=== PATIENT | female | born 1950 | race Caucasian/White ===

== ENCOUNTER → 2024-07-03 11:38 | Outpatient (CLI) | payer OTHER, SELFPAY ==
--- NOTE | 2024-07-03 | DI.CT.S_ITS ---
PROCEDURE: CT LUMBAR SPINE WO CON INDICATIONS: Spinal stenosis, lumbar region with neurogenic claudication TECHNIQUE: Noncontrast 3 mm thick sections acquired from the T12 level to the sacrum. Sagittal and coronal reformats were constructed. For radiation dose reduction, the following was used: automated exposure control. COMPARISON: [facility], MR, MR LUMBAR SPINE WITHOUT CONTRAST, 07/05/2023, 12:49. [facility] [place], CR, XR LUMBAR SPINE 2 OR 3 VIEWS, 06/21/2024, 12:25. FINDINGS: Image quality: Excellent. Bones: There is 2 mm retrolisthesis of L2 on L3 and 3 mm anterolisthesis of L4 on L5. No acute vertebral body compression fractures. No suspicious lytic or blastic bony lesions. No pars defects. T12-L1: No significant disc bulge, canal stenosis or neural foraminal narrowing. L1-L2: Degenerative endplate changes and vacuum disc phenomenon is seen. There is diffuse disc bulge and bilateral facet arthrosis causing mild central canal stenosis and moderate bilateral neural foraminal narrowing slightly worse on the left side. L2-L3: Loss of disc height and degenerative endplate changes are seen. Broad-based disc bulge and bilateral facet arthrosis with [id number] central canal stenosis, severe left-sided neural foraminal narrowing. L3-L4: Loss of disc height and degenerative endplate changes are seen. Broad-based disc bulge and bilateral facet arthrosis causing moderate to severe central canal stenosis and right worse than left moderate to severe bilateral neural foraminal narrowing. L4-L5: Degenerative endplate changes are seen. Broad-based disc bulge and bilateral facet arthrosis with [id number] central canal stenosis and moderate to severe bilateral neural foraminal narrowing. L5-S1: Loss of disc height and degenerative endplate changes are seen. Diffuse disc bulge and bilateral facet arthrosis causing mild central canal stenosis and gjpu-ro-ycuzxica bilateral neural foraminal narrowing worse on the right side. Soft tissues: No retroperitoneal masses or hematomas. Visualized aorta is normal in caliber. IMPRESSION: 1. Study is for surgical planning. 2. Degenerative disc disease throughout lumbar spine causing various degrees of central canal stenosis and bilateral neural foraminal narrowing as described above and is better evaluated on previous MRI study. 3. No acute compression fracture. Minimal spondylolisthesis as described above. No suspicious intraosseous lesion. No gross paraspinous soft tissue abnormalities. Dictated by: Brian Beltran M.D. on 07/03/2024 at 17:43 Approved by: Brian Beltran M.D. on 07/03/2024 at 17:50
== END ==
PROVIDERS: PCP Family Medicine; Referring Provider Orthopaedic Surgery Orthopaedic Surgery of the Spine; Visit Provider Orthopaedic Surgery Orthopaedic Surgery of the Spine
DX: M48.062 Spinal stenosis, lumbar region with neurogenic claudication (principal); M48.07 Spinal stenosis, lumbosacral region; M51.36 Other intervertebral disc degeneration, lumbar region; M51.37 Other intervertebral disc degeneration, lumbosacral region; M47.816 Spondylosis without myelopathy or radiculopathy, lumbar region; M47.817 Spondylosis without myelopathy or radiculopathy, lumbosacral region
CPT/HCPCS: 72131

== ENCOUNTER 2024-07-11 06:04 | Inpatient (IN) | payer OTHER, SELFPAY ==
[2024-07-05 09:48] VITALS: BMI 35.7
[2024-07-10 13:30] VITALS: TEMP 36.2
[2024-07-11] VITALS (14 sets, daily range): BP systolic 109–139; BP diastolic 50–85; PULSE 72–91; RESP 10–20; TEMP 36.2–37; O2SAT 91–99; BMI 34.2; BMI 36.8
[2024-07-11] MEDS: LACTATED RINGERS 1,000 ML 42 ML IV ×2 (06:51→09:15)
[2024-07-11] MEDS: ACETAMINOPHEN 325 MG TABLET 975 MG PO (06:55)
--- NOTE | 2024-07-11 07:39 | PM.PREOP ---
Pre-operative Note Interval Note History & Physical reviewed/Exam performed by Physician: Yes Changes to H&P: No
[2024-07-11] MEDS: CEFAZOLIN 2 GM/100 ML PREMIX 100 ML IV ×2 (08:03→16:09)
--- NOTE | 2024-07-11 08:13 | SUR.OPER ---
Prone on spine table, head in foam head support, padded chest and pelvic supports, gel pad at knees, lower legs supported by pillows; nipples, genitalia and toes free of pressure, arms secured on foam padded arm boards at <90 degrees abduction. Tape over blanket at thigh secured to table.
[2024-07-11] MEDS: BUPIVACAINE 0.25% (PF) 60 ML, EPINEPHrine 0.15 MG INJ (08:24)
[2024-07-11] MEDS: BUPIVACAINE LIPOSOME 266 MG/20 ML VIAL INJ (08:24)
--- NOTE | 2024-07-11 10:30 | P.OP_ITS ---
Operative Date/Time/Diagnoses Date of procedure: 07/11/24 Time of procedure: 07:40 Pre-op diagnosis: 1. L4-5 spondylolisthesis 2. L3-4, L4-5 spinal stenosis with radiculopathy Post-op diagnosis: same Procedure & Clinicians Procedure: 1. L4-5 Postero-lateral and posterior interbody fusion 2. L4-5 interbody cage placement. 3. L4-5 decompressive laminectomy with bilateral facetecomies 4. L4-5 Posterior non-segmental instrumentation 5. L3-4 left hemilaminectomy 6. [place] of bone marrow from iliac crest 7 Utilization of microsurgical technique and operating microscope 8. Utilization of robotic assisted navigation Same procedure as scheduled: Yes Indications: Patient has been having chronic back pain and worsening lumbar radiculopathy. Patient was found to have L4-5 spondylolisthesis at L4-5 with flexion-extension x-ray along with L3-4 L4-5 spinal stenosis correlating with her back pain and leg radiculopathy. Patient failed multiple conservative management with worsening pain weakness and numbness in her lower extremity. Patient has been having difficulty performing activity of daily living. After discussing risks benefits of treatment options, patient elected proceed with surgery. Surgeon: Shola Love Marine Engineering Teacher: Shadia Julian Click Yes if Unassisted: No Anesthesia Type: General Operative Notes Closure Type: primary Specimen(s): none sent Prosthetic devices, grafts, tissues, transplants, or devices: Globus CREO MIS screws, Rise cage Estimated Blood Loss (mL): 100 Blood products transfused: none Procedure in detail: Patient was seen in the preoperative area. Risks and benefits of the surgery was discussed with the patient. Informed consent was obtained from the patient and placed in the chart. Surgical site was marked. Patient was taken to the operative room. General anesthesia was administered. Prophylactic antibiotic was given to the patient less than 30 min before the incision was made. Patient was placed into a prone position on the Yogi table. Patient's back was then prepped and draped in the sterile fashion. Time-out was performed at this time. After patient was prepped and draped, patient's PSIS was palpated and marked bilaterally. Small 1 cm incision was made over the PSIS for placement of the reference probes. Two trocar was placed into the PSIS 1 on each side. The reference probe was attached to the trocar of the reference apparatus. At this time the C-arm imaging was used to confirm AP and lateral of L4-L5 vertebrae and merged the C-arm imaging using the Military Wraps robotic navigation system with the CT of the lumbar spine. After successful merging was completed and confirmed, skin marker was used to cori out the skin incision using the Military Wraps robotic arm. Bilateral incision was made at this time. Pre templated trajectory was used and guided using the Military Wraps robotic navigation system for bilateral L4, L5 pedicle screw placement. This was done by using the robotic arm to guide the high-speed bur to make a cortical entry point. Next a drill was placed also using the robotic arm and guided using the navigation system drilling partially through bilateral L4, L5 pedicles. Next L4, L5 pedicle screws it was pre templated and measured was placed onto the po wer street flusher driver and inserted into the pedicles bilaterally. After all 4 screws were placed C-arm imaging was taken of both AP and lateral to confirm the placement. Excellent placement of the screws were confirmed and a matched precisely with the pre planned screw placement using the navigation system. MARs retractor was inserted using Letsdeccoivation guidence. Globus MARS retractors was placed inside the incision and docked onto the L4 lamina. Using microsurgical technique and operating microscope, a L4 laminectomy and L4-5 facetectomy was performed using a Kerrison rongeur. Patient was found have severe lateral recess and neural foramen stenosis which was fully decompressed after the laminectomy facetectomy. More than 75% of the facets were removed during the process of decompression rendering L4-5 level grossly unstable and required a fusion procedure at the same time. The disc space at L4-5 was identified, and a total diskectomy was performed at L4-5 level. The endplates were decorticated using a rasp and shaver. The total diskectomy and decortication was performed at L4-5 level in order to to accomplish a L4-5 fusion. The local bone from the laminectomy and facetectomy was saved for local bone grafting. After the total diskectomy and decortication was completed, Viacel bone graft material was combined with local bone that was harvested earlier. At this time, a separate skin is incision was made over the iliac crest. A Jamshidi needle was inserted into the iliac crest through a separate skin incision. 5 cc of bone marrow aspiration was obtained through the separate skin incision using a Jamshidi needle from the iliac crest. The bone marrow aspiration was combined with local bone and the Viacel bone grafting material. The bone grafting material was placed into the L4-5 interbody space along with a expandable cage. The cage was expanded to its maximum height using the torque limiting screwdriver. The disc preparation as well as the cage insertion were also performed under navigation guidance. After the cage was placed, AP and lateral C-arm imaging was taken to confirm placement of the cage and excellent position was confirmed. The MARS retractor was heard redirected over the L3-4 interval. Using microsurgical technique and operating microscope a left-sided hemilaminectomy was performed using Kerrison rongeur and undercutting the L3-4 facet to further decompress the lateral recess. Globus MARS retractor was inserted and docked onto the L4-5 posterolateral gutter on the right side. Using the power drill, posterior-lateral decorticati on was performed at L4-5 level until bleeding cortical bone was identified. The remaining bone grafting material was placed into the L4-5 posterior lateral gutter he order to accomplish posterolateral fusion at the L4-5 level. At this time the tulips were attached to the L4, L5 pedicle screw shanks. After measuring the length of the rods, they were inserted into the tulips of the pedicle screws and locked in place using locking caps and torque limiting screwdriver bilaterally. Total 4 caps and 2 titanium rods was used in order to complete the posterior instrumentation construct. After all the hardware was placed, and confirmed with AP and lateral C-arm imaging, the wound was then irrigated with sterile normal saline and packed with Ray-Samra gauze for 3 min to accomplish hemostasis. After the gauze was removed the deep fascia was closed with #1 Vicryl suture. The subcutaneous layer was closed with 2-0 Vicryl. The skin was closed with skin radha. Patient tolerated the procedure well. There were no complications. The Operation could not have been safely performed without compromising the technical result or length of the procedure, without the assistance of a skilled surgical garment fitter. The surgical garment fitter was medically necessary for proper positioning, retraction and manipulation of instruments, proper exposure, surgical preparation, and manipulation of tissue. Neuro monitoring system was used to monitor patient's neurologic status throughout entire procedure. There was no disturbance of the neural monitoring signals throughout the case. Complications: none Post-operative Condition: stable Disposition: PACU Plan for aftercare: Admit to inpatient hospital
--- NOTE | 2024-07-11 10:30 | DI.RAD.S_ITS ---
PROCEDURE: XR LUMBAR SPINE 2-3V INDICATIONS: L4-5 TLIF TECHNIQUE: 2 intraoperative views of the lumbar spine were acquired. COMPARISON: [facility] DANICA Larson, XR LUMBAR SPINE 2 OR 3 VIEWS, 06/21/2024, 12:25. FINDINGS: Bones: Intraoperative views during L4-5 posterior spinal fixation and discectomy. Hardware appears intact. IMPRESSION: Intraoperative views during L4-5 posterior spinal fixation and discectomy. Hardware appears intact. Dictated by: Luis Knight M.D. on 07/11/2024 at 14:43 Approved by: Luis Knight M.D. on 07/11/2024 at 14:44
[2024-07-11] MEDS: hydrOXYzine 50 MG/ML INJ 25 MG IM (10:53)
[2024-07-11] MEDS: LACTATED RINGERS 1,000 ML 125 ML IV (11:44)
--- NOTE | 2024-07-11 12:27 | OT.IPNOTE ---
Checked on pt for OT eval and not ready as just came up from surgery. Able to get prior level of care and home information from her daughter, no charge. To work with her daughter tomorrow at 9AM.
[2024-07-11] MEDS: TRIAMTERENE/HCTZ 37.5/25 CAPSULE 1 CAP PO (12:40)
[2024-07-11] MEDS: ACETAMINOPHEN 325 MG TABLET 650 MG PO (13:04)
--- NOTE | 2024-07-11 14:40 | PT.IIE ---
Current Diagnoses Spondylolisthesis, lumbar region (07/11/24) Spinal stenosis, lumbar region with neurogenic claudication (07/11/24) Surgery Performed Operation Date: 07/11/24 07:45 Actual Procedures p L4-5 TLIF -Rodrigo - Shola Love MD Surgical History (Last Updated 07/05/24 @ 10:23 by Jamila Otto, RN) Hx of arthroscopy of left knee Hx of laminectomy Hx of LASIK Hx of left breast biopsy Medical History (Last Updated 07/05/24 @ 10:20 by Jamila Otto RN) Depression Diabetes HLD (hyperlipidemia) HTN (hypertension) Neuropathy No blood products Overactive bladder Psoriasis Spinal stenosis Physical Therapy Inpatient Evaluation/Re-Eval M1 PT/OT-IP Prior Functional Status Start: 07/11/24 15:46 Freq: NEEDED Status: Active Protocol: Document 07/11/24 14:40 AB (Rec: 07/11/24 16:01 [id number]) Medical Review Prior Functional Status Medical History Reviewed Yes Communication able to make needs known Mobility and Gait pt stated that she was modified independent with all mobilities but occasionally will need assistance with sit to stand. pt ambulates without AD indoors but tends to furniture cruise. uses a SPC for outdoor ambulation Social History Household Members none Living Arrangements Mobile home Number of Floors (Floors) One Floor Number of Stairs To Enter/Railing? pt has a ramp to enter Home Environment Standard Height Toilet,Tub/ Shower,Ramp Home Equipment Straight Cane,Raised Toilet Seat w/Armrests,Shower Seat with Backrest,Hand Held Shower Additional Social History Comment Pt's daughter to stay with here as long as needed daughter stated that they will get a FWW for pt and currently a grab bar is being installed next to the toilet M2 PT-IP Current Condition Start: 07/11/24 15:46 Freq: NEEDED Status: Active Protocol: Document 07/11/24 14:40 AB (Rec: 07/11/24 16:01 AB [id number]) Physical Therapy Current Condition Current Condition Evaluation Date 07/11/24 Treatment Diagnosis s/p L4-5 TLIF; difficulty in walking Onset Date 07/11/24 M3 PT-IP Subjective Start: 07/11/24 15:46 Freq: NEEDED Status: Active Protocol: Document 07/11/24 14:40 AB (Rec: 07/11/24 16:01 [id number]) Subjective Physical Therapy Visit Type Type Initial Evaluation Visit Start Time 14:40 Visit Stop Time 15:40 Number of COTTON BAG SEWER Visits 0 Physical Therapy Visit Comments Patient Comments agreeable to do PT Therapy Pain Assessment Pain When Pain Assessed At Rest Pain Present Pain Present Pain Reported Location back Intensity 3 Scale Used increases to 6/10 with mobility Description Sharp Pain Management Techniques Apply Cold,Distraction, Modification of Treatment,Re- positioning,Timing of Activity with Medications M4 PT-IP Mobility and Gait Start: 07/11/24 15:46 Freq: NEEDED Status: Active Protocol: Document 07/11/24 14:40 AB (Rec: 07/11/24 16:01 [id number]) PT-Bed Mobility Assessment Rolling Type of Rolling Log Rolling Level of Assist Moderate Assistance Supine to Sit Supine to Sit Moderate Assistance,Maximum Assistance PT-Transfer Assessment Sit to and From Stand Sit to and from Stand Minimal Assistance,1 Person Assistance,Use of Upper Extremities Equipment Transfer Assistive Device Gait Belt,Front Wheeled Walker Orthotic/Prosthetic Devices or Brace: No Transfers Transfer Destination Toilet Transfer Technique ambulated Transfer Ability Level of Assist Minimal Assistance,1 Person Assistance,Use of Upper Extremities Comments Mobility Comments pt supine in bed and daughter in room with pt. post-op folder provided and reviewed contents. educated pt regarding back precautions and log roll bed mobility. BP in supine: 127/72 O2 sat: 92-93 %. pt completed log roll supine to sit mod to max A and max cues. pt able to sit on EOB with initial min A but SBA after repositioning. c/o slight dizziness. BP: 127/78. pt requested to use the toilet. completed sit to stand min A and cues. ambulated towards the toilet using FWW min A and cues for steadiness and safety. pt can be impulsive. min A for standign balance while pt manages her brief. sit to stand from the toilet using grab bar min A. pt needed assist with hygiene care and brief management. pt ambulated towards the sink using FWW min A. able to maintain standing balance min A using FWW for support while completing handwashing. pt ambulated back to the EOB min A and cues. completed log roll sit to supine SBA and max cues. positioned pt in bed. call light and table placed within reach. pt's daughter will be in for OT at 9am. pt and daughter agreed to do caregiver training if needed afterwards. Gait Assessment Gait Gait Assistance Required: Minimum Assistance Distance (Feet) 12 Able to Maintain Weight Bearing Status Yes During Gait Assistive Devices Assistive Device Gait Belt,Front Wheeled Walker Orthotic/Prosthetic Devices or Brace: No Gait Deviations General Gait Pattern Ataxic,Decreased Stride Length ,Decreased Feet Clearance,Step -to Gait Factors Limiting Gait Function Factors Limiting Gait Function Decreased Activity Tolerance, Decreased Strength,Difficulty Following Directions,Limited Range of Motion,Pain,Poor Balance,Poor Safety Awareness PT-Balance Assessment Sitting Balance and Reactions Static Sitting Balance Ability Good Dynamic Sitting Balance Ability Good Standing Balance and Reactions Static Standing Balance Ability Fair Dynamic Standing Balance Ability Fair Device Used FWW M5 PT-IP Objective Assessments Start: 07/11/24 15:46 Freq: NEEDED Status: Active Protocol: Document 07/11/24 14:40 AB (Rec: 07/11/24 16:01 [id number]) Orientation Orientation/Cognition Level of Alertness Alert Orientation Name,Place,Situation Safety Awareness Decreased Safety Awareness Memory Description No Deficits Noted Gross Range of Motion Lower Extremity ROM Assessment Within Functional Limits Strength Comments Strength Comments RLE: 4/5 LLE 4-/5 Sensation Assessment Sensation Gross Sensation WNL Muscle Tone Muscle Tone WNL Yes M6 PT-IP Treatment Start: 07/11/24 15:46 Freq: NEEDED Status: Active Protocol: Document 07/11/24 14:40 AB (Rec: 07/11/24 16:01 [id number]) Physical Therapy Treatment Education Education Provided Safety M7 PT-IP Assessment and Plan Start: 07/11/24 15:46 Freq: NEEDED Status: Active Protocol: Document 07/11/24 14:40 AB (Rec: 07/11/24 16:01 [id number]) PT Summary Assessment and Plan Potential Rehabilitation Potential Good Status of Condition at Evaluation Stable Summary Impairments Pain,ROM,Strength,Balance, Coordination,Sensation,Tone, Cognition,Bed Mobility, Transfers,Gait,Activity Tolerance Assessment Summary pt is a 73 y/o F s/p L4-5 TLIF POD 0. pt with back precautions. pt requiring mod to max A for bed mobility and min A with transfers and ambulation using FWW. pt plans to go home with daughter to assist her. Caregiver training will be conducted when appropriate. will continue to assess. Goals Bed Mobility Goal Independent Transfer Goal Independent,Front Wheeled Walker Gait Goal Independent,Front Wheel Walker Gait Distance 200 Days to Meet Goals 5 Frequency of Treatment Frequency Of Treatment Twice a Day Treatment Plan Physical Therapy Treatment Plan Bed Mobility Training,Transfer Training,Gait Training, Therapeutic Exercise,Balance Retraining,Post Op Education, Discharge Planning,Hot or Cold Pack,Neuromuscular Re-ed, Coordination Retraining,Manual Therapy Precautions Lumbar Precautions Log Roll,No Twisting,Limit Bending,Lifting Restriction of 10 lbs,Gait Belt above Incisional Area Recommendations To Nursing Amount of Assist Needed 1 Person Assist Discharge Recommendations PT Discharge Recommendations Home with 24/ Assist Available,Home Health Transportation Needs at Discharge Private Vehicle
[2024-07-11] MEDS: OXYCODONE IR 10 MG TABLET PO (15:12)
[2024-07-11] MEDS: GABAPENTIN 300 MG CAPSULE PO ×2 (16:01→20:50)
[2024-07-11] MEDS: lisinopriL 20 MG TABLET 40 MG PO (20:50)
[2024-07-11] MEDS: CITALOPRAM 10 MG TABLET 20 MG PO (20:50)
[2024-07-11] MEDS: buPROPion XL 150 MG TAB PO (20:50)
[2024-07-11] MEDS: DOCUSATE 100 MG CAPSULE PO (20:51)
[2024-07-11] MEDS: SENNOSIDES 8.6 MG TABLET 17.2 MG PO (20:51)
[2024-07-11] MEDS: OXYCODONE IR 5 MG TABLET PO (20:51)
[2024-07-12] MEDS: OXYCODONE IR 5 MG TABLET PO ×3 (00:44→13:26)
[2024-07-12] MEDS: CEFAZOLIN 2 GM/100 ML PREMIX 100 ML IV (00:53)
[2024-07-12] MEDS: ACETAMINOPHEN 325 MG TABLET 650 MG PO (05:46)
[2024-07-12] MEDS: DOCUSATE 100 MG CAPSULE PO (08:43)
[2024-07-12] MEDS: OXYBUTYNIN 5 MG TABLET PO (08:44)
[2024-07-12] MEDS: GABAPENTIN 300 MG CAPSULE PO (08:44)
[2024-07-12] MEDS: METFORMIN HCL 500 MG TABLET PO (08:44)
[2024-07-12] MEDS: TRIAMTERENE/HCTZ 37.5/25 CAPSULE 1 CAP PO (08:44)
[2024-07-12] MEDS: ATORVASTATIN 20 MG TABLET 40 MG PO (08:44)
--- NOTE | 2024-07-12 09:39 | OT.IP.EVAL ---
Current Diagnoses Spondylolisthesis, lumbar region (07/11/24) Spinal stenosis, lumbar region with neurogenic claudication (07/11/24) Surgery Performed Operation Date: 07/11/24 07:45 Actual Procedures p L4-5 TLIF -Robot - Shola Love MD Past Medical History (Last Updated 07/05/24 @ 10:20 by Jamila Otto, RN) Depression Diabetes HLD (hyperlipidemia) HTN (hypertension) Neuropathy No blood products Overactive bladder Psoriasis Spinal stenosis Surgical History (Last Updated 07/05/24 @ 10:23 by Jamila Otto RN) Hx of arthroscopy of left knee Hx of laminectomy Hx of LASIK Hx of left breast biopsy Occupational Therapy Inpatient Evaluation/Re-Eval M1 PT/OT-IP Prior Functional Status Start: 07/11/24 15:46 Freq: NEEDED Status: Active Protocol: Document 07/11/24 14:40 AB (Rec: 07/11/24 16:01 AB [id number]) Medical Review Prior Functional Status Medical History Reviewed Yes Communication able to make needs known Mobility and Gait pt stated that she was modified independent with all mobilities but occasionally will need assistance with sit to stand. pt ambulates without AD indoors but tends to furniture cruise. uses a SPC for outdoor ambulation Social History Household Members none Living Arrangements Mobile home Number of Floors (Floors) One Floor Number of Stairs To Enter/Railing? pt has a ramp to enter Home Environment Standard Height Toilet,Tub/ Shower,Ramp Home Equipment Straight Cane,Raised Toilet Seat w/Armrests,Shower Seat with Backrest,Hand Held Shower Additional Social History Comment Pt's daughter to stay with here as long as needed daughter stated that they will get a FWW for pt and currently a grab bar is being installed next to the toilet M3 OT- IP Subjective and Pain Start: 07/11/24 12:28 Freq: Status: Active Protocol: Document 07/12/24 09:40 [facility] (Rec: 07/12/24 09:53 [facility] [id number]) OT- Subjective Occupational Therapy Visit Type Type Treatment Note Visit Start Time 09:00 Visit Stop Time 09:39 Occupational Therapy Visit Comments Patient Comments Pt agreed to get up to use the bathroom. Patient/Caregiver Goals TO go home. OT Pain Assessment Pain When Pain Assessed At Rest Pain Present Pain Present Pain Reported Location back Intensity 2 Scale Used Numeric (0 - 10) M4 OT- IP ADL's Start: 07/11/24 12:28 Freq: Status: Active Protocol: Document 07/12/24 09:40 [facility] (Rec: 07/12/24 09:53 [facility] [id number]) OT FIM-[place]ve-[place] General Evaluation Self-Feeding Ability Independent OT ADL-Grooming General Evaluation Grooming Ability Standby Assistance Areas Needing Assistance Retrieving/Set-up of Grooming Items Comments OT Grooming Comments Able to do while standing with the FWW. OT ADL-Oral Care General Eval Oral Care Ability Independent Comments Oral Care Comments VC to hinge at her hips or just spit into a cup to best follow her back precautions. OT ADL-Dressing General Eval Lower Body Dressing Ability Maximum Assistance Comments OT Dressing Comments Pt able to practice use of rattlesnake farmer and sick aid to assist with needs. Pt states to wear gown and slip on slippers. OT ADL-Toileting General Evaluation Toileting Ability Minimal Assistance Comments OT Toileting Comments Pt has a bidet at home and needing assist for completeness to wipe. Suggested pt get a toilet paper aid.Pt has to wear pads/ brief at home. OT ADL-Bathing Comments OT Bathing Comments Educated pt's daughter of care for bandage needs while showering . M5 OT- IP IADL's Start: 07/11/24 12:28 Freq: Status: Active Protocol: Document 07/12/24 09:40 [facility] (Rec: 07/12/24 09:53 [facility] [id number]) OT-Instrumental Activities of Daily Living Deficits IADL Deficits Identified Deficits Home Safety Awareness Awareness of Need for Assistance at Home Good Awareness Ability to Problem Solve Emergency Able to Problem Solve Situations Home Safety Comments Pt's daughter to stay with her as long as needed after surgery. Meal Preparation Meal Preparation Caregiver Provides Assist Public Relations Specialist Public Relations Specialist Caregiver Provides Assist M6 OT- IP Functional Cognition Start: 07/11/24 12:28 Freq: Status: Active Protocol: Document 07/12/24 09:40 [facility] (Rec: 07/12/24 09:53 [facility] [id number]) Cognitive Factors Limiting Selfcare Function Cognitive Ability Level of Alertness Alert Patient Orientation Name,Age,Birthday,Month,Date, Year,Day of Week,Place, Situation Attention Span Ability Capable of Focused Attention, Capable of Sustained Attention Ability to Follow Commands Able to Follow One Step Commands Safety Awareness Decreased Ability to Apply Precautions Cognitive Comments Cognitive Assessment Comments Pt needing safety reminders to push up from the bed to stand to the FWW. Pt needing reminders to incorporate her back precautions for needs. OT- Vision and Hearing OT- Hearing Assessment OT- Hearing Assessment WFL M7 OT- IP Mobility and Balance Start: 07/11/24 12:28 Freq: Status: Active Protocol: Document 07/12/24 09:40 [facility] (Rec: 07/12/24 09:53 [facility] [id number]) OT- Bed Mobility Assessment Rolling Level of Assistance Contact Guard Assistance, Bedrails Supine to Sit Supine to Sit Assist Standby Assistance Sit to Supine Sit to Supine Assist Standby Assistance Scooting Scooting to Edge of Bed Standby Assistance OT-Transfer Assessment Sit to and From Stand Sit to and from Stand Standby Assistance,Contact Guard Assistance Transfers Transfer Ability Standby Assistance Technique Transfer Destination Bed,Toilet Transfer Technique Stand Step Pivot Devices Transfer Assistive Devices Gait Belt,Front Wheeled Walker Comments Mobility Comments Pt needing use of bedrail or or her daughter to hold the FWW in place so able to pull up on the FWW to help with bed mobility needs. OT- Balance Assessment Sitting Balance and Reactions Static Sitting Balance Ability Good Dynamic Sitting Balance Ability Good Standing Balance and Reactions Static Standing Balance Ability Good Dynamic Standing Balance Ability Fair M9 OT- IP Assessment and Plan Start: 07/11/24 12:28 Freq: Status: Active Protocol: Document 07/12/24 09:40 [facility] (Rec: 07/12/24 09:53 [facility] [id number]) OT Summary Assessment and Plan Potential Rehabilitation Potential Excellent Analytic Complexity at Evaluation Low Summary OT Impairments Pain,Strength,Balance, Functional Mobility,Dressing, Toileting,Bathing,Toilet Transfers,Shower Transfers Progress Towards Goals Progressing Toward Goals Assessment Summary Pt low complexity and main barriers are pain, LB dressing and showering needs. Pt's daughter able to safely assist pt for dressing,toileting, bed mobility and transfer needs. Pt to go home when medically stable. NOtified nursing that the purewick is out and best for pt to get up and use the bathroom. Goals Dressing Goal Independent,Treasury Specialist,Sock Aid Toileting Goal Independent,Toilet Paper Aid Bathing Goal Minimal Assistance Toilet Transfer Goal Independent Shower Transfer Goal Standby Assistance Days to Meet Goals 3 Frequency of Treatment Other frequency 5x/week Treatment Plan OT Treatment Plan ADL Training,Functional Mobility,Patient/Family Education,Discharge Planning Discharge Recommendations OT Discharge Recommendations Home with Assistance Home Equipment Needs toilet paper aid, LB dressing equipment Transportation Needs at Discharge Private Vehicle
[2024-07-12] MEDS: OXYCODONE IR 10 MG TABLET PO (10:30)
--- NOTE | 2024-07-12 10:50 | PT.IPTN ---
Current Diagnoses Spondylolisthesis, lumbar region (07/11/24) Spinal stenosis, lumbar region with neurogenic claudication (07/11/24) Surgery Performed Operation Date: 07/11/24 07:45 Actual Procedures p L4-5 TLIF -Robot - Shola Love MD Physical Therapy Treatment Note M2 PT-IP Current Condition Start: 07/11/24 15:46 Freq: NEEDED Status: Active Protocol: Document 07/11/24 14:40 AB (Rec: 07/11/24 16:01 AB [id number]) Physical Therapy Current Condition Current Condition Evaluation Date 07/11/24 Treatment Diagnosis s/p L4-5 TLIF; difficulty in walking Onset Date 07/11/24 M3 PT-IP Subjective Start: 07/11/24 15:46 Freq: NEEDED Status: Active Protocol: Document 07/12/24 11:32 TS (Rec: 07/12/24 11:47 TS [id number]) Subjective Physical Therapy Visit Type Type Treatment Note Visit Start Time 10:50 Visit Stop Time 11:13 Number of JOURNEYMAN WELDER Visits 1 Physical Therapy Visit Comments Patient Comments Pt found resting in bed, family in room, pt is agreeable to PT. Therapy Pain Assessment Pain When Pain Assessed At Rest Pain Present Pain Present Pain Reported M4 PT-IP Mobility and Gait Start: 07/11/24 15:46 Freq: NEEDED Status: Active Protocol: Document 07/12/24 11:32 TS (Rec: 07/12/24 11:47 TS [id number]) PT-Bed Mobility Assessment Rolling Type of Rolling Log Rolling Level of Assist Contact Guard Assistance Supine to Sit Supine to Sit Contact Guard Assistance Sit to Supine Sit to Supine Contact Guard Assistance PT-Transfer Assessment Sit to and From Stand Sit to and from Stand Standby Assistance Equipment Transfer Assistive Device Gait Belt,Front Wheeled Walker Orthotic/Prosthetic Devices or Brace: No Comments Mobility Comments Pt recalled 3/3 spinal precautions prior to mobility. Logroll to R side CGA with handrails. Supine to sit CGA with BUE support, pt uses FWW as handrail to assist into sitting. Daughter dons gait belt. STS with FWW SBA. Pt ambulated ~200'SBA with FWW, denied dizziness or lightheadedness. She ambulated back to the room, sit to supine into bed CGA. Pt was left in bed, all needs met. Gait Assessment Gait Gait Assistance Required: Standby Assistance Distance (Feet) 200 Assistive Devices Assistive Device Gait Belt,Front Wheeled Walker Orthotic/Prosthetic Devices or Brace: No Gait Deviations General Gait Pattern Ataxic,Decreased Stride Length ,Decreased Feet Clearance,Step -to Gait Factors Limiting Gait Function Factors Limiting Gait Function Decreased Activity Tolerance, Decreased Strength,Difficulty Following Directions,Limited Range of Motion,Pain,Poor Balance,Poor Safety Awareness Comments Gait Comments See mobility comments PT-Balance Assessment Sitting Balance and Reactions Static Sitting Balance Ability Good Dynamic Sitting Balance Ability Good Standing Balance and Reactions Static Standing Balance Ability Good Dynamic Standing Balance Ability Fair Device Used FWW M5 PT-IP Objective Assessments Start: 07/11/24 15:46 Freq: NEEDED Status: Active Protocol: Document 07/11/24 14:40 AB (Rec: 07/11/24 16:01 AB [id number]) Orientation Orientation/Cognition Level of Alertness Alert Orientation Name,Place,Situation Safety Awareness Decreased Safety Awareness Memory Description No Deficits Noted Gross Range of Motion Lower Extremity ROM Assessment Within Functional Limits Strength Comments Strength Comments RLE: 4/5 LLE 4-/5 Sensation Assessment Sensation Gross Sensation WNL Muscle Tone Muscle Tone WNL Yes M6 PT-IP Treatment Start: 07/11/24 15:46 Freq: NEEDED Status: Active Protocol: Document 07/12/24 11:32 TS (Rec: 07/12/24 11:47 TS [id number]) Physical Therapy Treatment Education Education Provided Safety M7 PT-IP Assessment and Plan Start: 07/11/24 15:46 Freq: NEEDED Status: Active Protocol: Document 07/12/24 11:32 TS (Rec: 07/12/24 11:47 TS [id number]) PT Summary Assessment and Plan Potential Rehabilitation Potential Good Summary Impairments Pain,ROM,Strength,Balance, Coordination,Sensation,Tone, Cognition,Bed Mobility, Transfers,Gait,Activity Tolerance Progress Towards Goals Progressing Toward Goals Assessment Summary Rona is making good progress with her mobility. She is CGA for all bed mobility and demonstrates good carryover of sequencing. She progressed her gait to ~200'SBA with FWW. She demonstrates good recall of her spinal precautions, pt recalled 3/3. Daughter performed donning of gait belt , STS, bed mobility and gait with pt. PT is recommending home with assist. Goals Bed Mobility Goal Independent Transfer Goal Independent,Front Wheeled Walker Gait Goal Independent,Front Wheel Walker Gait Distance 200 Days to Meet Goals 5 Frequency of Treatment Frequency Of Treatment Twice a Day Treatment Plan Physical Therapy Treatment Plan Bed Mobility Training,Transfer Training,Gait Training, Therapeutic Exercise,Balance Retraining,Post Op Education, Discharge Planning,Hot or Cold Pack,Neuromuscular Re-ed, Coordination Retraining,Manual Therapy Precautions Lumbar Precautions Log Roll,No Twisting,Limit Bending,Lifting Restriction of 10 lbs,Gait Belt above Incisional Area Recommendations To Nursing Amount of Assist Needed 1 Person Assist Discharge Recommendations PT Discharge Recommendations Home with Assistance,Home Health Transportation Needs at Discharge Private Vehicle
--- NOTE | 2024-07-12 11:05 | CM.DANOTE ---
Addendum entered by NAGA Tran 07/12/24 11:51: ADD: Confirmation from [facility] that they can accept and faxed completed F2F and HH orders to review and awaiting discharge orders and summary to send to [facility] at discharge. SW provided [facility] brochure to Dtr bedside who was very appreciative. BF Original Note: Patient is a 73 yo female who was admitted on 07/11/24 for TLIF. [facility] and her PCP is Elsi Gamez. EMR was reviewed. Per Ortho PA, pt tolerated procedure well and to work more with PT/OT today for possible discharge home this afternoon. Per PT/OT, recommending home with assist and maybe HH. PT to complete CG training with family bedside this morning. SW met bedside with pt, Dtr Natacha, and adult son and explained role and pt confirms she lives in [facility] in a mobile home alone and is mostly independent at baseline and has a cane and ramp to get into her mobile home. Dtr picked up FWW for home use. Pt's POA is her Dtr Natacha who will also be staying with pt at d/c to provide assist and is bedside for CG training today. Both pt and family confirm their preference is to discharge home when stable and SW discussed HH recommendation and the services and frequency and they all feel HH would be needed at d/c. SW provided the HH Choice list and no HH preference so TEODORO Wilma kindly made [facility] referral based on Vendor Calendar and [facility] F2F and HH orders completed for HH RN/OT/PT/LAB ASSOCIATE. Plan: SW to follow for PT CG training with family bedside later this morning to confirm if pt medically stable to discharge home today vs tomorrow via family POV and new [facility]. F2F, HH orders, and d/c summ to be faxed to [facility] at discharge. NAGA Tran Discharge Planning/Care Management CM Discharge Assessment Start: 07/12/24 11:03 Freq: Status: Active Protocol: Document 07/12/24 11:03 BF (Rec: 07/12/24 11:05 BF [id number]) Discharge Planning Assessment Assigned Zyglo Technician NAGA Dasilva DPOA/Assigned Designee Name Jodi Manzano Contact Information [phone] Advance Directives? Yes Advance Directives on File Yes History Provided By Patient,Family Member,Medical Record Has Patient been admitted in last 30 No days? Prior Living Arrangements Mobile home Household Members none Type of transporation used prior to Drives own vehicle admit Independent with ADL's Yes Is patient alert and oriented? Yes Needs Assistance With Home Chores / Shopping Caregiver for Another No Community Services used prior to Physical Therapy admission: DME Already Rented / Owned FWW / Walker,Cane Patient/Family Preference Home with Home Health Barriers to Discharge No Discharge Plan Home with Home Health Community Services Physical Therapy,Occupational Therapy,Home Health Aid,Home Health Nurse Transportation Arrangement Dtr and son bedside and can transport pt home and Dtr to stay Referrals Initiated Home Health Additional Comment [facility] referral made If patient plan is home with home health Yes : Has signed face to face form been completed? Medicare Choice List Provided Yes Medicare choice list reviewed on patient,family electronic tablet with SNF/HH Preference [facility] Whiteboard Updated in Patient Room with Yes name and ext. # of Zyglo Technician Review Status In Process Please Provide Date Initial DC 07/12/24 Assessment Was Performed Next Review Type Continued Stay Review Pre-Anesthesia Assessment Start: 07/05/24 09:48 Freq: Status: Complete Protocol: Document 07/05/24 09:48 CAB (Rec: 07/05/24 09:50 CAB [id number]) Pre-Anesthesia Assessment Patient Information Reviewed Via Phone Assessment Assessment Completed With Patient Diagnostic Results BMP/CMP,CBC,EKG Comment Outside labs/EKG scanned Primary Care Provider Elsi Gamez Seen Specialist in Last 12 Months Yes Specialist Seen Orthopedist,Urologist Primary Language Korean Senior It Business Analyst Required No Height 160.02 cm Weight 91.626 kg Body Mass Index (BMI) 35.7 Hearing Ability Normal Visual Assist Magnifying Glass Dentition Type Teeth, Natural Present,Teeth, Missing Barriers to Learning None Hx Anesthesia Reactions No Hx Family Anesthesia Reaction No Hx Malignant Hyperthermia No Hx Blood Transfusions No: Pt is Jehovah Witness Anesthesia Review Requested No Carriage Rider No alcohol intake current alcohol intake frequency holidays/special occasions only Smoking Status Never smoker Substance Use Type does not use Pain Present Pain Reported Musculoskeletal Symptoms Abnormal Gait,Back Pain, Difficulty Walking,Radiating Pain into Limb History of Falling (Recent or History of No ) Patient is completely paralyzed or No completely immobile Prosthesis or Orthotic Device Cane,Front Wheel Walker Mental Status Oriented to own ability Is patient on oxygen? No Does patient have [place]/SOB No Hx Sleep Apnea No Currently Taking a Beta Alonzo No Can You Climb a Flight of Stairs Without Yes SOB Hx Chest Pain No Hx SOB No Hx Syncope or Dizziness No Anti-Coagulant Therapy No Has a Lead Based Paint Technician No Cardiac Testing No Hx Pacemaker/ICD No Pacemaker Rep Required? No Cardiac Clearance Received No Diet Type At Home Regular Dysphagia No Bladder Pattern Frequency,Incontinent,Urgency Urinary Catheter Present No Hx Urinary Self Catheterization No Diabetes Yes: Pt checks blood surgar once a day HgbA1C 5.7 Date 06/28/24 Patient No Lactating No Hx Drug Resistant Organism No Marital Status - lives in a long term Lives With none Current Living Arrangements Mobile home Number of Stairs To Enter/Railing? Pt has a ramp Support System Child/Children,Friend(s) Does the Patient Have Assistance After Yes: Daughter will stay at DC Surgery to assist w/care, friend also avail Patient Discharge Plan Description Return Home Comment Pt advised overnight length of stay per surgeon Feels Safe in Current Environment Yes Been Physically Hurt or Threatened By a No Person in Current Environment Do you have thoughts of harming yourself None or others? Are you currently considering suicide? No Do you have a plan to hurt yourself or No Plan others? Do You Have Any Spiritual Beliefs That Yes: Pt is Jehovah Witness - May Affect Your HC Choices? NO BLOOD PRODUCTS Do You Have Any Cultural Practices That No May Affect Your HC Choices? Who Can We Speak to About Patient's Care Family, friends Identifying Code for Release of Patient Declines to issue Information Health Care Proxy/Next of Kin Natacha (daughter) Health Care Proxy Emergency Contact Name Natacha (daughter) Emergency Contact Advance Directives? Yes Advance Directives on File Yes Requested Patient Bring Advanced No Directives DOS Power of Crosscutter Yes Power of Crosscutter Name Natacha kennedy) Power of Crosscutter PAC Instructions Diabetes instructions,Durable medical equipment,Medications to take/avoid,Nasal antibiotic ,No ETOH/petroleum product on skin DOS,NPO,Post-op transportation,Pre-surgical wash,Sensory aids,Sturdy shoes /comfortable clothes,Do not bring valuables and remove jewelry
--- NOTE | 2024-07-12 11:35 | PM.DS.1 ---
History of Present Illness History of Present Illness Date Patient Seen: 07/12/24 Time Patient Seen: 11:36 Chief complaint: INPT Narrative: Patient found sitting comfortably in her bed surrounded by family. Has some soreness along the incision site. Had to administer a vani-wick, but the patient has a history of mild incontinence. Denies any new numbness or tingling down the lower extremities. Patient feels she is ready to be discharged home. Discharge Providers Provider Date of admission: 07/11/24 06:04 Discharge Date: 07/12/24 Primary care physician: Elsi Gamez MD Consults: 07/11/24 11:08 Consult to Occupational Therapy Evaluate & Treat Comment: Physician Instructions: Evaluate and treat Consult to Physical Therapy Evaluate & Treat Comment: Physician Instructions: Evaluate and Treat 07/12/24 11:02 Consult to Home Health Routine Comment: TLIF, diabetes Reason For Exam: Set up HH RN/PT/OT/SOCK EXAMINER for discharge to home Discharge provider: Shon Moran PA-C Summary Hospital Course Discharge Diagnosis: 1. L4-5 spondylolisthesis 2. L3-4, L4-5 spinal stenosis with radiculopathy Hospital Course: Procedure: 1. L4-5 Postero-lateral and posterior interbody fusion 2. L4-5 interbody cage placement. 3. L4-5 decompressive laminectomy with bilateral facetecomies 4. L4-5 Posterior non-segmental instrumentation 5. L3-4 left hemilaminectomy 6. Langley of bone marrow from iliac crest 7 Utilization of microsurgical technique and operating microscope 8. Utilization of robotic assisted navigation Same procedure as scheduled: Yes Indications: Patient has been having chronic back pain and worsening lumbar radiculopathy. Patient was found to have L4-5 spondylolisthesis at L4-5 with flexion-extension x-ray along with L3-4 L4-5 spinal stenosis correlating with her back pain and leg radiculopathy. Patient failed multiple conservative management with worsening pain weakness and numbness in her lower extremity. Patient has been having difficulty performing activity of daily living. After discussing risks benefits of treatment options, patient elected proceed with surgery. Surgeon: Shola Love Overlock Sleeve Setter: Shadia Julian Click Yes if Unassisted: No Anesthesia Type: General Operative Notes Closure Type: primary Specimen(s): none sent Prosthetic devices, grafts, tissues, transplants, or devices: Globus CREO MIS screws, Rise cage Estimated Blood Loss (mL): 100 Status at Discharge Cognitive/behavioral status at discharge: oriented Functional status at discharge: uses cane/walker Overall status at discharge: patient is back to baseline Time Spent with Patient Time spent: Less than 30 minutes Exam Vital Signs (past 8 hours): - 07/12/24 07:00 Oxygen Delivery Method Room Air Oxygen Delivery Method Room Air Oxygen Flow Rate 2 Narrative Exam Narrative: Patient found sitting comfortably in bed. Right side of the dressing appears to have been sloughed off. Sensation intact to lower extremities. No increased pain or warmth noted with compression of the posterior calf or thigh. 5/5 EPL, DF, PF, Quads and hamstrings. Resp Effort & Inspection: normal respiratory effort and able to speak in complete sentences [facility] Medical History (Updated 07/05/24 @ 10:20 by Jamila Otto RN) No blood products Depression Psoriasis Spinal stenosis Diabetes Overactive bladder HLD (hyperlipidemia) HTN (hypertension) Neuropathy Surgical History (Updated 07/05/24 @ 10:23 by Jamila Otto RN) Hx of arthroscopy of left knee Hx of left breast biopsy Hx of laminectomy Hx of LASIK Social History household members: none Smoking Status: Never smoker alcohol intake: current Discharge Assessment & Plan Assessment and Plan Assessment: Status post TLIF 4-5 and L3-4 left hemilaminectomy Plan of Treatment: Change dressing Discharge to home with family. Address no bending twisting or lifting more than 10 lb. Multimodal pain control. Patient has postoperative medications already oxycodone 5 mg take every 4 hours as needed for strong pain and hydroxyzine 25 mg take every 24 hours as needed for postoperative nausea or spasms. Baseline pain control with acetaminophen 500 mg every 4 hours. Follow up in clinic in 2 weeks for wound check. Discharge Plan Discharge Plan Patient Disposition: Home Discharge orders & Medications Prescriptions: Continued citalopram 20 MG tablet 20 mg PO BEDTIME Qty: 0 triamterene-hydrochlorothiazid 37.5 MG/25 MG tablet 1 tab PO Q DAY Qty: 0 atorvastatin 40 mg Tablet 40 mg PO DAILY aspirin 81 mg Tablet,Delayed Release (Dr/Ec) 81 mg PO DAILY gabapentin 300 mg Capsule 300 mg PO TID oxybutynin chloride 5 mg Tablet 5 mg PO DAILY lisinopril 40 mg Tablet 40 mg PO BEDTIME bupropion HCl 150 mg Tablet Extended Release 24 Hr 150 mg PO BEDTIME oxybutynin chloride 5 mg tablet extended release 24hr 5 mg PO DAILY metformin 500 mg tablet extended release 24 hr 500 mg PO DAILY Follow up/Referrals: Shola Love MD [Physician] - 07/27/24 11:00 am (Follow up w/ Calvin Holloway PA-C, on 07/27/2024 @ [facility], [facility]ated [facility] in [place].) Elsi Gamez MD [Primary Care Provider] - Diet/Activity/Treatments Diet: Diet as Tolerated Activity: No deep bending or twisting at the waist. No lifting more than 10 pounds. Cold/Heat Therapy: Heating pad to low back as needed for muscle spasm. Skin/Wound/Dressing Care Report to your healthcare provider any signs of infection, such as:: chills, fever, night sweats, unusual drainage and unusual redness Dressing: May shower. Keep dressing as dry as possible. If dressing becomes wet or dirty, may remove and replace with clean, dry gauze. No bathing or otherwise soaking incisions. Do not apply any creams, lotions, or ointments to incisions. Visit Report/Discharge Packet Instructions: DI for Transforaminal Lumbar Interbody Fusion Stand Alone Forms: Patient Portal/API, Stroke Signs & Symptoms, Surgery Discharge Discharge Data Primary Care Provider: Elsi Gamez Quality VTE Deep Vein Thrombosis/Pulmonary Embolism Present on Admission: No
== END 2024-07-12 13:45 | disposition home health service (06) | DRG 455 ==
PROVIDERS: Admitting Provider Orthopaedic Surgery Orthopaedic Surgery of the Spine; PCP Family Medicine; Referring Provider Orthopaedic Surgery Orthopaedic Surgery of the Spine; Visit Provider Orthopaedic Surgery Orthopaedic Surgery of the Spine
PROC: 0SG00AJ Fusion of Lumbar Vertebral Joint with Interbody Fusion Device, Posterior Approach, Anterior Column, Open Approach (ICD-10-PCS; principal; 2024-07-11 07:45)
DX: M43.16 Spondylolisthesis, lumbar region (principal); M48.061 Spinal stenosis, lumbar region without neurogenic claudication; M54.16 Radiculopathy, lumbar region; R32 Unspecified urinary incontinence; I10 Essential (primary) hypertension; E78.5 Hyperlipidemia, unspecified; F32.A Depression, unspecified; E11.40 Type 2 diabetes mellitus with diabetic neuropathy, unspecified; Z79.84 Long term (current) use of oral hypoglycemic drugs
CPT/HCPCS: 72100; 76000; 82962; 97116; 97161; 97165; 97530; 97535; C1713; C9290; J0171; J0690; J1100; J2405; J2704; J3010; J3410